=== PATIENT | male | born 1975 | race American Indian/Alaskan Native ===

== ENCOUNTER 2017-03-06 15:18 | Outpatient (CLI) | payer OTHER ==
--- NOTE | 2017-03-06 19:07 | XRay Report ---
FINAL REPORT EXAM: XR ELBOW 3+V LT HISTORY: ELBOW PAIN TECHNIQUE: Three views of the left elbow PRIORS: None. FINDINGS: Postoperative findings are seen with surgical plates and screws distal humerus and surgical nails and wires within the proximal ulna. Multiple metallic foreign bodies are seen anterior soft tissues suspect pole fragments. Surgical clips are noted. Joint space is narrowed. There is corticated deformity of the mid proximal radial diaphysis. No bony destructive changes are observed. IMPRESSION: Postoperative and posttraumatic changes as noted above. No acute appearing abnormality seen
--- NOTE | 2017-03-06 19:31 | XRay Report ---
FINAL REPORT EXAM: XR FOREARM LT HISTORY: ARM PAIN TECHNIQUE: Left forearm three views PRIORS: None. FINDINGS: Surgical hardware bridging remote fractures of the distal humerus and proximal are further noted on today's elbow series. There is corticated deformity of the proximal to mid shaft of the radius consistent with remote healed fracture. Multiple surgical clips are present in the forearm. No acute bony destructive changes are identified. No acute fracture identified. IMPRESSION: Remote a posttraumatic findings and remote healed fracture of the shaft of the radius. No acute abnormality identified
== END 2017-03-06 15:19 | disposition home or self-care (01) ==
LOC: SPVIMAG 15:18
PROVIDERS: ATTEND Orthopaedic Surgery Sports Medicine
DX: M79.632 Pain in left forearm (principal); M25.522 Pain in left elbow; S52.302D Unspecified fracture of shaft of left radius, subsequent encounter for closed fracture with routine healing; X58.XXXD Exposure to other specified factors, subsequent encounter